=== PATIENT | female | born 1975 | race Caucasian/White ===

== ENCOUNTER 2018-07-02 16:28 | Emergency (ER) | payer OTHER ==
[2018-07-02 16:34] VITALS: BP 127/72
--- NOTE | 2018-07-02 16:43 | ED Physician Documentation ---
History of Present Illness - Stated complaint Stated Complaint: R THUMB LAC - Chief complaint Chief Complaint: Laceration - History obtained from History obtained from: Patient - History of Present Illness Timing: Today Pain level max: 0 - Additonal information Additional information: Patient is a previously healthy, right-handed 43-year-old female with a small, approximately 0.5 cm, linear laceration to the dorsum of her right thumb after accidentally cutting it while using a razor blade and cutting regine earlier today. Patient denies other injury. Patient denies changes in motor, strength, and sensation to right thumb. There are no improving or worsening factors contributing. Tetanus unknown. Review of Systems Skin: reports: Laceration (s) Neurologic: denies: Numbness PD PAST MEDICAL HISTORY - Past Medical History Past Medical History: No - Past Surgical History Past Surgical History: No - Present Medications Home Medications: Ambulatory Orders Medication Instructions Recorded Confirmed No Known Home Medications 07/02/18 07/02/18 - Allergies Allergies/Adverse Reactions: Allergies Allergy/AdvReac Type Severity Reaction Status Date / Time No Known Drug Allergies Allergy Verified 07/02/18 16:34 - Social History Does the pt smoke?: No Smoking Status: Never smoker Does the pt drink ETOH?: No Does the pt have substance abuse?: No PD ED PE NORMAL - General General: Alert and oriented X 3, No acute distress, Well developed/nourished - HEENT HEENT: Atraumatic - Cardiac Cardiac: Strong equal pulses (cap refill brisk) - Respiratory Respiratory: No respiratory distress - Derm Derm: Normal color, Warm and dry, Other (Approximately 0.5 linear laceration to dorsum of right thumb without complication, surrounding signs of infection, or other issue.) - Psych Psych: Normal mood, Normal affect Results - Vitals Vitals: Vital Signs - 24 hr 07/02/18 16:32 Temperature 36.8 C Heart Rate 73 Respiratory 18 Rate Blood Pressure 127/72 O2 Saturation 100 Oxygen O2 Source Room air Procedures - Laceration (location) Upper extremity right Length in cm: 0.5 Wound type: Linear, Into muscle Neurovascular status: Sensory intact, Motor intact Tendon involvement: Tendon intact Anesthesia: No: LET, EMLA, Lidocaine 1%, Lidocaine 1% with epi, Lidocaine 2%, Lidocaine 2% with epi, Marcaine 0.25%, Marcaine 0.25% with epi, Marcaine 0.5%, Marcaine 0.5% with epi, With bicarb, Volume - enter cc, Conscious sedation, OTH Wound Preparation: Irrigated copiously NS Skin layer closure: Dermabond, Steri strips Other: Patient tolerated well, No complications, Neurovascular intact, Dressing applied, Tetanus UTD Complexity: Simple PD MEDICAL DECISION MAKING - ED course Complexity details: considered differential, d/w patient ED course: Patient presenting with superficial, small, linear laceration to right thumb that was copiously irrigated appropriately cleaned. Patient's wound able to be closed using Steri-Strips and Dermabond. Thumb splint placed to help stop any additional movements or reopening of the wound. Tetanus updated. Otherwise, patient is safe to discharge home. Discussed appropriate wound care, return precautions, and follow-up. Patient voiced understanding and is comfortable with discharge plan. Departure - Departure Disposition: 01 Home, Self Care Clinical Impression: Laceration Condition: Good Instructions: ED Laceration All Follow-Up: your,doctor [Other] - Within 3 Days Comments: Please do not remove tape or glue. They will come off on their own within the next several days to weeks. Please keep wound clean using running water and soap only. Please keep the splint in place and otherwise use thumb minimally to avoid reopening of laceration. Follow-up with primary care physician in the next 2-3 days and return to ED sooner if experience reopening of food, bleeding, signs of infection or other concerns.
[2018-07-02] MEDS ORDERED: TETANUS/DIPHTHERIA/PERTUSSIS 0.5 ML SYRINGE IM ONE (16:55)
== END 2018-07-02 17:26 | disposition home or self-care (01) ==
LOC: ED 16:28
DX: S61.011A Laceration without foreign body of right thumb without damage to nail, initial encounter (principal); W26.8XXA Contact with other sharp object(s), not elsewhere classified, initial encounter; Y93.89 Activity, other specified
CPT/HCPCS: 12001; 90471; 99283